=== PATIENT | male | born 1995 | race Caucasian/White ===

== ENCOUNTER → 2018-06-05 | Outpatient (CLI) | payer OTHER ==
--- NOTE | 2018-06-05 14:44 | DIAGNOSTIC IMAGING REPORT ---
RIGHT AXILLA ULTRASOUND CLINICAL HISTORY: M79.89 Nodule of soft tissue PLEASE EVALUATE SOFT TISSUE NODULE I COMPARISON STUDY: None. FINDINGS: Real-time sonographic imaging of the right axilla was performed with sales representative [employer] images. Within the subcutaneous fat of the right axilla there is a 6 x 4 x 2 mm hypoechoic nodule. This appears to demonstrate central echogenicity. The appearance favors a small lymph node but is nonspecific. No additional masses or fluid collections identified within the right axilla. IMPRESSION: Within the subcutaneous fat of the right axilla there is a 6 x 4 x 2 mm hypoechoic nodule. The appearance favors a small lymph node but is nonspecific. Electronically signed by: Narciso Zhao M.D. 06/05/2018 2:43 PM Dictated Date/Time: 06/05/2018 2:41 PM
== END | disposition home or self-care (01) ==
LOC: C.ULTR 13:55
PROVIDERS: ATTEND Nurse Practitioner
DX: M79.89 Other specified soft tissue disorders (principal)